=== PATIENT | male | born 1960 | race Caucasian/White ===

== ENCOUNTER 2018-05-11 14:43 | Emergency (ER) | payer OTHER ==
[~2018-05-11] VITALS: Ht 175.3 cm; Wt 104.3 kg
[~2018-05-11 14:43] MED LIST: ACYCLOVIR; ADVAIR 250-501 EACH; BIAXIN 500 MG500 M1 PO; CEFTIN 250 MG250 MG; CYCLOBENZAPRINE; DOXYCYCLINE 10100 MG PO; HYDROCODONE-AP1 EAC6 PO; IBUPROFEN 600600 M1 PO; IBUPROFEN 800800 M1 PO; KEFLEX500 MG PO; LORTAB 7.5/5001 TA1 PO; MECLIZINE HCL25 M1 PO; MEDROL DOSPAK21 TA1; NORCO 5-325 TA1 EACH PO; PERCOCET 5-3251 EACH PO; PHENERGAN 25 MG25 M1 PO; PREVACID15 MG PO; PREVACID30 M1 PO; PRILOSEC40 MG PO; PROAIR HFA8.5 GM IH; PROTONIX40 MG PO; SPIRIVA INH; TRAMADOL 50 MG50 MG PO; ZOFRAN 4 MG ORAL4 M1 DIS
[2018-05-11] MEDS ORDERED: ACETAMINOPHEN-1 EAC1 PO (16:16)
[2018-05-11 16:35] VITALS: BP 120/55
== END 2018-05-11 16:35 | disposition home or self-care (01) ==
LOC: ER 14:43
DX: S61.211A Laceration without foreign body of left index finger without damage to nail, initial encounter (principal); K21.9 Gastro-esophageal reflux disease without esophagitis; G89.29 Other chronic pain; M54.9 Dorsalgia, unspecified; F17.210 Nicotine dependence, cigarettes, uncomplicated; Z88.6 Allergy status to analgesic agent; Z88.5 Allergy status to narcotic agent; W26.0XXA Contact with knife, initial encounter; Y93.89 Activity, other specified; Y92.89 Other specified places as the place of occurrence of the external cause; Y99.8 Other external cause status

== ENCOUNTER 2018-11-30 10:58 | Emergency (ER) | payer OTHER ==
[~2018-11-30] VITALS: Ht 167.6 cm; Wt 78.0 kg
[2018-11-30 10:58] VITALS: BP 132/70
[~2018-11-30 10:58] MED LIST changes: +ACETAMINOPHEN-1 EAC1 PO
[2018-11-30] MEDS ORDERED: KEFLEX500 M1 PO (11:20)
[2018-11-30] MEDS ORDERED: BACTRIM DS TAB1 EACH PO (11:20)
[2018-11-30] MEDS ORDERED: LISINOPRIL2.5 MG PO (11:50)
[2018-11-30] MEDS ORDERED: PREDNISONE50 MG PO (11:50)
[2018-11-30] MEDS ORDERED: ASA81BEC PO (11:51)
[2018-11-30] MEDS ORDERED: PROCHAMBER1 EACH (11:51)
[2018-11-30] MEDS ORDERED: PANTOPRAZOLE SO40 M1 PO (11:51)
== END 2018-11-30 11:57 | disposition home or self-care (01) ==
LOC: ER 10:58
DX: K13.0 Diseases of lips (principal); L01.00 Impetigo, unspecified; K21.9 Gastro-esophageal reflux disease without esophagitis; F17.210 Nicotine dependence, cigarettes, uncomplicated; Z90.5 Acquired absence of kidney; Z90.49 Acquired absence of other specified parts of digestive tract; Z88.6 Allergy status to analgesic agent; Z88.8 Allergy status to other drugs, medicaments and biological substances

== ENCOUNTER 2018-12-03 18:45 | Inpatient (IN) | payer OTHER ==
[~2018-12-03] VITALS: Ht 152.4 cm; Wt 77.6 kg
[~2018-12-03 18:45] MED LIST changes: +ASA81BEC PO; +BACTRIM DS TAB1 EACH PO; +KEFLEX500 M1 PO; +LISINOPRIL2.5 MG PO; +PANTOPRAZOLE SO40 M1 PO; +PREDNISONE50 MG PO; +PROCHAMBER1 EACH
[2018-12-03 19:04] VITALS: BP 121/70
[2018-12-03] MEDS ORDERED: METFORMIN HCL500 M3 PO (19:16)
[2018-12-03 19:58] LABS: ABSOLUTE NEUTROPHILS 9.1 thou/uL (1.4-8.2); BASOPHILS 0.3 % (0.0-2.0); CALCIUM 10.1 mg/dL (8.5-10.1); CREATININE 1.5 mg/dL (0.7-1.3); HEMATOCRIT 43.2 % (42.0-52.0); HEMOGLOBIN 14.2 gm/dL (14.0-18.0); LYMPHOCYTES 6.8 % (24.0-44.0); MCH 29.5 pg (26.0-34.0); MCHC 32.9 g/dL (28.0-37.0); MCV 89.5 fL (80.0-100.0); MONOCYTES 1.5 % (1.0-8.0); PLATELET COUNT 291 thou/uL (150-400); POLYS 91.4 % (36.0-66.0); POTASSIUM 5.3 mmol/L (3.5-5.1); RBC 4.83 mil/uL (4.50-6.00); RDW 15.2 % (10.5-14.5)
[2018-12-03 20:03] LABS: ALBUMIN 4.1 g/dL (3.4-5.0); TOTAL BILIRUBIN 0.7 mg/dL (<0.1-1.0); TOTAL PROTEIN 7.5 g/dL (6.4-8.2)
[2018-12-03 20:20] LABS: URINE BILIRUBIN NEGATIVE (Negative); URINE BLOOD NEGATIVE (Negative); URINE CLARITY CLEAR; URINE COLOR YELLOW; URINE GLUCOSE-RANDOM* NEGATIVE (Negative); URINE KETONES NEGATIVE (Negative); URINE LEUKOCYTES-REFLEX NEGATIVE (Negative); URINE NITRITE-REFLEX NEGATIVE (Negative); URINE PROTEIN (DIPSTICK) NEGATIVE (Negative); URINE SPECIFIC GRAVITY >= 1.030 (1.005-1.035); URINE UROBILINOGEN 0.2 E.U./dl (0.2-1.0)
[2018-12-03 21:59] VITALS: BP 115/68
[2018-12-03] MEDS ORDERED: PRAVACHOL 20 MG20 M1 PO (22:58)
[2018-12-03 23:00] VITALS: BP 111/69
[2018-12-03 23:50] VITALS: BP 114/73
--- NOTE | 2018-12-04 05:31 | NUR ---
PT ARRIVED THE UNIT AT 2325 YESTERDAY.PT ADM WITH COMPLAIN OF N/V/D FROM ER.PT ALSO HAS C/O OF RIGHT FACE PAIN.CAT SCAN DONE.PT IS UP AD MICHELLE AND A/O X4.PAIN OF 7/10 AND PAIN MGT WITH FENTANYL WITH PARTIAL RELIEF.PT IS ACHS AND REGUALR HEALTHY DIET.PT IS ON ROOM AIR.IV ACCESS ON RH WITH NS AT 125ML/HR.TO MONITOR STOOL .ADMIT ASSESSMENTS DONE AND POC UPDATED.CONTINUE POC
[2018-12-04 05:41] LABS: CALCIUM 8.8 mg/dL (8.5-10.1); CREATININE 1.2 mg/dL (0.7-1.3); MAGNESIUM 2.2 mg/dL (1.8-2.4); POTASSIUM 4.4 mmol/L (3.5-5.1)
[2018-12-04 08:00] VITALS: BP 106/74
--- NOTE | 2018-12-04 15:28 | NUR ---
INITIAL ASSESSMENT: Pt evaluated for d/c planning needs. Reviewed chart and spoke with nurse and pt. Pt is alert and oriented. Pt lives in basement apartment of sister's house. Pt was independent with ADL's and has walker and cane at home, which he does not use. Pt had previous knee surgery. Pt had home health after knee surgery. Pt has been for about 3 years. Pt remains active in the community and is still driving and is employed. Pt plans on returning home on d/c from hospital. Will remain available to assist as needed.
[2018-12-04 16:53] VITALS: BP 118/77
[2018-12-04 20:25] VITALS: BP 117/77
[2018-12-05 00:08] LABS: GLYCOHEMOGLOBIN (HGB A1C) 6.7 % (4.8-5.6)
--- NOTE | 2018-12-05 06:19 | NUR ---
PATIENT ALERT AND ORIENTED X4. C/O PAIN X3, MED GIVEN WITH GOOD RELIEF. UP IN ROOM. ACCUCHECK WAS 123, NO COVERAGE NEEDED. FACE NOT SWOLLEN.SLEPT MOST OF NIGHT.
[2018-12-05 08:20] VITALS: BP 131/82
--- NOTE | 2018-12-05 09:01 | NUR ---
PATIENT RESING IN BED STATES NO PAIN. WOULD LIKE TO DISCHARGE TODAY IF POSSIBLE. NICOTINE PATCH APPLIED. BLOOD SUGAR CHECKED NO S/S INSULIN. AM MEDS GIVEN.
[2018-12-05 10:34] VITALS: BP 131/82
[2018-12-05 11:51] LABS: HEMOGLOBIN 13.5 gm/dL (14.0-18.0); MCH 29.2 pg (26.0-34.0); MCHC 32.8 g/dL (28.0-37.0); MCV 88.9 fL (80.0-100.0); RBC 4.61 mil/uL (4.50-6.00); RDW 14.7 % (10.5-14.5); WBC 8.7 thou/uL (4.0-11.0)
[2018-12-05 19:06] VITALS: BP 126/72
[2018-12-06 04:05] VITALS: BP 125/81
--- NOTE | 2018-12-06 04:29 | NUR ---
PATIENT ALERT AND ORIENTED X4. C/O PAIN, MED GIVEN WITH GOOD RESULTS. UP IN ROOM AD MICHELLE. ACCUCHECK WAS 182, 3 UNITS LISPRO INSULIN WAS GIVEN, IV IN LH. SLEPT MOST OF NIGHT.
[2018-12-06 07:15] VITALS: BP 111/64
[2018-12-06 11:12] VITALS: BP 111/64
--- NOTE | 2018-12-06 16:45 | NUR ---
PATIENT ALERT AND ORIENTED WITH SPOUSE AT BEDSIDE. PATIENT DISCHARGED TO HOME WITH SPOUSE IN STABLE CONDITION, WITH DISCHARGE INSTRUCTIONS, PRESCRIPTIONS AND ALL PERSONAL BELONGINGS. SPOUSE TRANSPORTED PATIENT TO HOME IN PERSONAL VEHICLE.
--- NOTE | 2018-12-18 19:01 | HC ---
[facility] [place] [address] CONSULTATION Name: RAS HUIZAR Room #: 443-P [facility] M.R.#: [id number] Admission: 12/03/18 Attend Phys: Jose J Antoine MD Discharge: 12/06/18 Date of : 60 Report #: [id number] THIS REPORT FOR: //name// CC: FAM unknown Jose J Antoine DATE OF SERVICE: 12/05/2018 INFECTIOUS DISEASES CONSULTATION REASON FOR EVALUATION: Right facial soft tissue infection. HISTORY OF PRESENT ILLNESS: A 58-year-old with underlying history of autoimmune disease, on chronic corticosteroids and type 2 diabetes, who presents for further evaluation on 12/03/2018 for right facial soft tissue infection. Noticed small infected hair region to the right lower facial region around the corner of his mouth. This increased in size. He then noticed spontaneous drainage. Swelling increased. Treated with Keflex and Bactrim, but did not improve. Now hospitalized for further treatment. Placed on clindamycin. Swelling has improved. Overall, feels much better. Initially had nausea and vomiting and diarrhea that has resolved. He has had no recent dental work. No other trauma noted. 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 REVIEW OF SYSTEMS: A 10-point review was negative other than what has been described above. ALLERGIES: DIPHENHYDRAMINE AND MORPHINE. MEDICATIONS: As noted on his MAR including 20 mg a day, lisinopril, , pantoprazole, , aspirin and metformin, now on clindamycin. PAST MEDICAL HISTORY: Inguinal herniorrhaphy, umbilical hernia surgery, deviated septum, renal cell carcinoma, status post left nephrectomy, chronic back pain, hemorrhoids, sciatica, laparoscopic cholecystectomy, previous pancreatitis, previous lumbar surgery, left total knee arthroplasty, sinus surgery, gastroesophageal reflux. FAMILY HISTORY: Noncontributory. SOCIAL HISTORY: Smoker of cigarettes. No significant alcohol. 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 PHYSICAL EXAMINATION: VITAL SIGNS: Afebrile and hemodynamically stable. GENERAL: Alert and cooperative, in no acute distress, sitting up in his chair. [facility] [address] [place] [address] CONSULTATION Name: RAS HUIZAR SANDY RIDGE Room #: 443-P [facility] IN M.R.#: [id number] Admission: 12/03/18 Attend Phys: Jose J Antoine MD Discharge: 12/06/18 Date of : 60 Report #: [id number] HEENT: Eyes without scleral icterus. Mouth without mucositis. Facial swelling, mostly in the lower lip region on the right with a very small fluctuant area, the area to the corners of the mouth spontaneously drained he said before presentation. There is mild tenderness there. No evidence of cellulitis outside this region. NECK: Supple, with no thyromegaly or mass. LUNGS: Clear. HEART: Regular, without murmur, gallop or rub. EXTREMITIES: No peripheral adenopathy noted. No other skin lesions noted. BACK: Nontender. EXTREMITIES: Without clubbing, cyanosis or edema. Mood was normal. LABORATORY STUDIES: Hemoglobin 13.5, white count 8.7, platelet count 238,000. Differential, 91% segs. Creatinine 1.2. Blood glucose 169. Liver function test normal. Blood cultures negative. CT of the facial bones, no evidence of abscess. Chest x-ray was clear. IMPRESSION: 1. A 58-year-old with right facial cellulitis and furuncle lower lip on the right, some spontaneous drainage. So far no area that is amenable for incision and drainage. CT scan showed no evidence of abscess. 2. Autoimmune retinopathy. 3. Immunosuppression, on steroids. 4. Chronic tobacco use. 5. Renal cell carcinoma, status post left nephrectomy. 6. Diabetes. 7. Hypertension. 8. Hyperlipidemia. RECOMMENDATION: Since he has improved significantly on clindamycin, we will continue the same with clindamycin 600 mg t.i.d. for the next 10 days. I would have him contact his manager cardiac and see if he can decrease his prednisone as much as possible while he is dealing with this infection, also apply heat to his right face several times a day. Use Hibiclens washes to the facial area twice a day for the next week. The patient should follow up with his primary care next week before finishing his course of antibiotics. If any worsening, the patient should return for further evaluation. <ELECTRONICALLY SIGNED> By: Sarwat Hurst MD 12/18/18 1901 1800 030 Sarwat Hurst MD /nt
== END 2018-12-06 13:27 | disposition home or self-care (01) | DRG 602 ==
LOC: ER 18:45 → 4S 20:51 → EROBS 20:51 → 4S 23:10
PROVIDERS: Emergency Medicine; Nurse Practitioner Acute Care; ADMIT Internal Medicine
DX: L03.211 Cellulitis of face (principal); N17.0 Acute kidney failure with tubular necrosis; N17.9 Acute kidney failure, unspecified; R19.7 Diarrhea, unspecified; L50.0 Allergic urticaria; L02.02 Furuncle of face; K21.9 Gastro-esophageal reflux disease without esophagitis; I10 Essential (primary) hypertension; Z96.652 Presence of left artificial knee joint; E11.319 Type 2 diabetes mellitus with unspecified diabetic retinopathy without macular edema; F17.210 Nicotine dependence, cigarettes, uncomplicated; T38.0X5A Adverse effect of glucocorticoids and synthetic analogues, initial encounter; E78.5 Hyperlipidemia, unspecified; E11.65 Type 2 diabetes mellitus with hyperglycemia; M54.30 Sciatica, unspecified side; E11.649 Type 2 diabetes mellitus with hypoglycemia without coma; Z79.84 Long term (current) use of oral hypoglycemic drugs; Z88.5 Allergy status to narcotic agent; Z88.8 Allergy status to other drugs, medicaments and biological substances; Z90.49 Acquired absence of other specified parts of digestive tract; Z90.5 Acquired absence of kidney; Z85.53 Personal history of malignant neoplasm of renal pelvis; Z82.49 Family history of ischemic heart disease and other diseases of the circulatory system; Z83.3 Family history of diabetes mellitus; Z80.3 Family history of malignant neoplasm of breast; Y92.89 Other specified places as the place of occurrence of the external cause
CPT/HCPCS: 10195

== ENCOUNTER 2019-02-16 10:08 | Emergency (ER) | payer OTHER ==
[~2019-02-16] VITALS: Ht 167.6 cm; Wt 78.0 kg
[~2019-02-16 10:08] MED LIST changes: +METFORMIN HCL500 M3 PO; +PRAVACHOL 20 MG20 M1 PO
[2019-02-16 11:37] LABS: ABSOLUTE NEUTROPHILS 8.6 thou/uL (1.4-8.2); BASOPHILS 0.3 % (0.0-2.0); EOSINOPHILS 0.6 % (0.0-3.0); HEMATOCRIT 44.3 % (42.0-52.0); HEMOGLOBIN 14.4 gm/dL (14.0-18.0); LYMPHOCYTES 22.6 % (24.0-44.0); MCH 29.4 pg (26.0-34.0); MCHC 32.5 g/dL (28.0-37.0); MCV 90.4 fL (80.0-100.0); MONOCYTES 4.4 % (1.0-8.0); PLATELET COUNT 238 thou/uL (150-400); POLYS 72.1 % (36.0-66.0); RDW 14.9 % (10.5-14.5); WBC 11.9 thou/uL (4.0-11.0)
[2019-02-16 11:39] LABS: CALCIUM 9.5 mg/dL (8.5-10.1); CREATININE 1.2 mg/dL (0.7-1.3); POTASSIUM 3.7 mmol/L (3.5-5.1)
[2019-02-16 11:45] LABS: ALBUMIN 3.8 g/dL (3.4-5.0); DIRECT BILIRUBIN 0.1 mg/dL (<0.1-0.2); TOTAL BILIRUBIN 0.9 mg/dL (<0.1-1.0)
[2019-02-16 14:19] VITALS: BP 111/71
== END 2019-02-16 14:19 | disposition home or self-care (01) ==
LOC: ER 10:08
PROVIDERS: Emergency Medicine
DX: R10.32 Left lower quadrant pain (principal); K21.9 Gastro-esophageal reflux disease without esophagitis; M54.9 Dorsalgia, unspecified; G89.29 Other chronic pain; F17.210 Nicotine dependence, cigarettes, uncomplicated; Z85.53 Personal history of malignant neoplasm of renal pelvis; Z90.49 Acquired absence of other specified parts of digestive tract; Z90.5 Acquired absence of kidney; Z88.6 Allergy status to analgesic agent; Z88.8 Allergy status to other drugs, medicaments and biological substances

== ENCOUNTER 2019-07-16 20:35 | Emergency (ER) | payer OTHER ==
[~2019-07-16] VITALS: Ht 167.6 cm; Wt 77.1 kg
[~2019-07-16 20:35] MED LIST changes: +PRILOSEC OTC20 MG PO
[2019-07-16] MEDS ORDERED: VITAMIN C500 M2 PO (20:45)
[2019-07-16] MEDS ORDERED: SUPER THERAVIT1 EACH PO (20:45)
[2019-07-16] MEDS ORDERED: VITAMIN D3100 MCG PO (20:46)
[2019-07-16 21:12] LABS: ABSOLUTE NEUTROPHILS 9.4 thou/uL (1.4-8.2); BASOPHILS 0.4 % (0.0-2.0); EOSINOPHILS 0.1 % (0.0-3.0); HEMATOCRIT 41.6 % (42.0-52.0); HEMOGLOBIN 13.9 gm/dL (14.0-18.0); LYMPHOCYTES 8.4 % (24.0-44.0); MCH 29.7 pg (26.0-34.0); MCHC 33.5 g/dL (28.0-37.0); MCV 88.6 fL (80.0-100.0); PLATELET COUNT 231 thou/uL (150-400); POLYS 89.1 % (36.0-66.0); RBC 4.69 mil/uL (4.50-6.00); RDW 15.1 % (10.5-14.5); WBC 10.6 thou/uL (4.0-11.0)
[2019-07-16 21:20] LABS: ANION GAP 9 mmol/L (7-16); BUN 26 mg/dL (7-18); CHLORIDE 102 mmol/L (98-107); CO2 27 mmol/L (21-32); CREATININE 1.2 mg/dL (0.7-1.3); GLUCOSE 177 mg/dL (74-106); POTASSIUM 4.1 mmol/L (3.5-5.1); SODIUM 138 mmol/L (136-145)
[2019-07-16 21:26] LABS: ALBUMIN 3.8 g/dL (3.4-5.0); DIRECT BILIRUBIN < 0.1 mg/dL (<0.1-0.2); LIPASE 468 U/L (73-393); SGOT 18 U/L (15-37); SGPT 33 U/L (30-65); TOTAL BILIRUBIN 1.1 mg/dL (0.2-1.0); TOTAL PROTEIN 6.9 g/dL (6.4-8.2)
[2019-07-17 00:36] VITALS: BP 112/75
--- NOTE | 2019-07-17 08:13 | EKG ---
[facility] [place] [address] ELECTROCARDIOGRAM REPORT Name: RAS HUIZAR Room #: [facility]#: [id number] Admission: 07/16/19 Attend Phys: Discharge: 07/17/19 Date of : 60 Report #: [id number] THIS REPORT FOR: cc: ASA - No family physician/PCP FAM - No family physician/PCP Sixto Hector MD [facility] THIS REPORT FOR: //name// [facility] ED Test Date: 2019-07-16 Test Time: 20:47:26 Pat Name: RAS HUIZAR Department: Room: Gender: Pathology Laboratory Aide: Tamra KIMBROUGH RN : 1960 Requested By: Mariann Grant Order Number: [id number] MD: Sixto Hector Measurements Intervals [place] Rate: 82 P: 68 SC: 129 QRS: -29 QRSD: 88 T: 39 QT: 360 QTc: 421 Interpretive Statements Sinus rhythm Borderline left axis deviation Compared to ECG 07/30/2011 07:11:40 No significant change was found Electronically Signed On 07-17-2019 8:11:01 CDT by Sixto Hector [email or web address] <ELECTRONICALLY SIGNED> By: Sixto Hector MD, FACC 07/17/19 0811 46 46 Sixto Hector MD, [facility] /EPI
== END 2019-07-17 00:40 | disposition home or self-care (01) ==
LOC: ER 20:35
PROVIDERS: Emergency Medicine
DX: K29.70 Gastritis, unspecified, without bleeding (principal); J44.9 Chronic obstructive pulmonary disease, unspecified; G89.29 Other chronic pain; F17.210 Nicotine dependence, cigarettes, uncomplicated; Z03.818 Encounter for observation for suspected exposure to other biological agents ruled out; Z79.899 Other long term (current) drug therapy; Z79.82 Long term (current) use of aspirin; Z88.8 Allergy status to other drugs, medicaments and biological substances; Z88.6 Allergy status to analgesic agent; Z98.890 Other specified postprocedural states

== ENCOUNTER 2019-11-24 19:36 | Emergency (ER) | payer OTHER ==
[~2019-11-24] VITALS: Ht 167.6 cm; Wt 76.2 kg
[~2019-11-24 19:36] MED LIST changes: +SUPER THERAVIT1 EACH PO; +VITAMIN C500 M2 PO; +VITAMIN D3100 MCG PO
[2019-11-24 20:14] VITALS: BP 120/72
[2019-11-24 21:06] LABS: ABSOLUTE NEUTROPHILS 10.4 thou/uL (1.4-8.2); BASOPHILS 0.8 % (0.0-2.0); EOSINOPHILS 0.4 % (0.0-3.0); LYMPHOCYTES 15.5 % (24.0-44.0); MCH 29.9 pg (26.0-34.0); MCHC 34.1 g/dL (28.0-37.0); MCV 87.5 fL (80.0-100.0); MONOCYTES 4.4 % (1.0-8.0); PLATELET COUNT 245 thou/uL (150-400); POLYS 78.9 % (36.0-66.0); RBC 4.34 mil/uL (4.50-6.00); RDW 14.7 % (10.5-14.5); WBC 13.2 thou/uL (4.0-11.0)
[2019-11-24 21:17] LABS: CALCIUM 8.9 mg/dL (8.5-10.1); CREATININE 1.1 mg/dL (0.7-1.3); POTASSIUM 3.7 mmol/L (3.5-5.1)
[2019-11-24 21:22] LABS: ALBUMIN 3.5 g/dL (3.4-5.0); TOTAL BILIRUBIN 0.6 mg/dL (0.2-1.0); TOTAL PROTEIN 6.2 g/dL (6.4-8.2)
--- NOTE | 2019-11-25 07:45 | EKG ---
[facility] [place] [address] ELECTROCARDIOGRAM REPORT Name: RAS HUIZAR Room #: [facility]#: [id number] Admission: 11/24/19 Attend Phys: Discharge: 11/24/19 Date of : 60 Report #: [id number] THIS REPORT FOR: cc: ASA - Cally family physician/PCP ASA - Cally family physician/PCP Sixto Hector MD [facility] THIS REPORT FOR: //name// [facility] ED Test Date: 2019-11-24 Test Time: 20:50:36 Pat Name: RAS HUIZAR Department: Room: Gender: Pharmacist: : 1960 Requested By: Boo Bermudez Order Number: [id number] MD: Sixto Hector Measurements Intervals [place] Rate: 76 P: 73 KS: 133 QRS: -23 QRSD: 93 T: 37 QT: 376 QTc: 423 Interpretive Statements Sinus rhythm Borderline left axis deviation Compared to ECG 07/16/2019 20:47:26 No significant change was found Electronically Signed On 11-25-2019 7:45:18 CDT by Sixto Hector [email or web address] <ELECTRONICALLY SIGNED> By: Sixto Hector MD, FACC 11/25/19 0745 49 49 Sixto Hector MD, [facility] /EPI
== END 2019-11-24 22:53 | disposition home or self-care (01) ==
LOC: ER 19:36
PROVIDERS: Nurse Practitioner
DX: J06.9 Acute upper respiratory infection, unspecified (principal); R07.89 Other chest pain; M25.562 Pain in left knee; M79.10 Myalgia, unspecified site; K21.9 Gastro-esophageal reflux disease without esophagitis; F17.210 Nicotine dependence, cigarettes, uncomplicated; Z79.82 Long term (current) use of aspirin; Z79.899 Other long term (current) drug therapy; Z88.5 Allergy status to narcotic agent; Z88.8 Allergy status to other drugs, medicaments and biological substances; Z20.828 Contact with and (suspected) exposure to other viral communicable diseases

== ENCOUNTER 2020-01-02 16:02 | Emergency (ER) | payer OTHER ==
[~2020-01-02] VITALS: Ht 167.6 cm; Wt 76.2 kg
[2020-01-02] MEDS ORDERED: MOBIC15 MG PO (18:07)
[2020-01-02] MEDS ORDERED: NORFLEX100 MG PO (18:07)
[2020-01-02] MEDS ORDERED: NORCO 5-325 TA1 EAC2 PO (18:07)
[2020-01-02 18:30] VITALS: BP 110/74
== END 2020-01-02 18:35 | disposition home or self-care (01) ==
LOC: ER 16:02
DX: S70.02XA Contusion of left hip, initial encounter (principal); S60.212A Contusion of left wrist, initial encounter; S50.02XA Contusion of left elbow, initial encounter; S40.812A Abrasion of left upper arm, initial encounter; F17.210 Nicotine dependence, cigarettes, uncomplicated; K21.9 Gastro-esophageal reflux disease without esophagitis; Z79.82 Long term (current) use of aspirin; Z79.899 Other long term (current) drug therapy; Z88.5 Allergy status to narcotic agent; Z88.8 Allergy status to other drugs, medicaments and biological substances; W01.0XXA Fall on same level from slipping, tripping and stumbling without subsequent striking against object, initial encounter; Y93.89 Activity, other specified; Y92.89 Other specified places as the place of occurrence of the external cause; Y99.8 Other external cause status